=== PATIENT | female | born 1990 | race Caucasian/White ===

== ENCOUNTER 2021-07-10 18:44 | Emergency (ER) | payer MEDICAID ==
[~2021-07-10] VITALS: Ht 172.7 cm; Wt 82.0 kg
[2021-07-10] MEDS ORDERED: VISCOUS LIDOCAINE 2% 15 ML UDC PO STA (22:26)
[2021-07-10] MEDS ORDERED: MAGNESIUM/ALUMINUM HYDROXIDE/SIMETHICONE 30ML UDC PO STA (22:26)
[2021-07-10] MEDS ORDERED: LORAZEPAM 1MG TABLET PO ONE (23:30)
[2021-07-10 23:43] VITALS: BP 118/80
== END 2021-07-11 00:04 | disposition home or self-care (01) ==
LOC: ER 18:44
DX: F41.9 Anxiety disorder, unspecified (principal); R00.2 Palpitations; M54.2 Cervicalgia; Z87.891 Personal history of nicotine dependence
CPT/HCPCS: 93005; 99283